=== PATIENT | male | born 1940 | race Caucasian/White ===

== ENCOUNTER 2022-06-01 14:00 | Outpatient (CLI) | payer MEDICARE, BC, SELFPAY ==
[2022-06-01 17:46] LABS: Chloride* 101 mmol/L (96-114); Potassium* 3.7 mmol/L (3.6-5.1); Sodium* 136 mmol/L (135-149)
[2022-06-01 17:49] LABS: Blood Urea Nitrogen* 31 mg/dL (7-30); Carbon Dioxide* 27 mmol/L (20-32); Creatinine* 1.3 mg/dL (0.5-1.5); Estimated Glomerular Filt Rate 55 ml/min
[2022-06-01 17:50] LABS: Calcium* 9.6 mg/dL (8.4-10.6); Glucose* 96 mg/dL (60-115)
--- NOTE | 2022-06-17 14:07 | PC.SOCIAL ---
Spoke with pt.'s son Robb at [phone] for pt. The physician made a referral to psychiatric social worker supervisor for resources on home health billing specialist care for pt.'s spouse who has dementia while pt. is recovering from surgery. Currently Robb is staying with them but needs to fly back home on Wednesday. Emailed resources on home health billing specialist care, adult day care, home health billing specialist care, and meal delivery programs to pt.'s son Robb.
== END 2022-06-01 14:01 | disposition home or self-care (01) ==
PROVIDERS: PCP Family Medicine; Visit Provider Family Medicine
DX: Z01.818 Encounter for other preprocedural examination (principal)
CPT/HCPCS: 80048

== ENCOUNTER 2022-12-08 08:22 | Outpatient (CLI) | payer MEDICARE, BC, SELFPAY | END 2022-12-08 08:23 | disposition home or self-care (01) | LOC: INJ CL 08:24 | PROVIDERS: PCP Family Medicine; Visit Provider Family Medicine | DX: M51.36 Other intervertebral disc degeneration, lumbar region (principal); M54.16 Radiculopathy, lumbar region | CPT/HCPCS: 64483; J1100; Q9966 ==

== ENCOUNTER 2023-02-03 08:20 | Outpatient (CLI) | payer MEDICARE, BC, SELFPAY | END 2023-02-03 08:21 | disposition home or self-care (01) | LOC: NFLDREF 02-04 11:03 | PROVIDERS: PCP Family Medicine; Referring Provider Family Medicine; Visit Provider Family Medicine | DX: E78.5 Hyperlipidemia, unspecified (principal); N40.0 Benign prostatic hyperplasia without lower urinary tract symptoms; I10 Essential (primary) hypertension; Z12.5 Encounter for screening for malignant neoplasm of prostate | CPT/HCPCS: 80053; 80061; 84153 ==

== ENCOUNTER 2023-02-15 14:01 | Outpatient (CLI) | payer MEDICARE, BC, SELFPAY | END 2023-02-15 14:02 | disposition home or self-care (01) | LOC: RAD 14:01 | PROVIDERS: PCP Family Medicine; Visit Provider Family Medicine | DX: I34.0 Nonrheumatic mitral (valve) insufficiency (principal); I35.8 Other nonrheumatic aortic valve disorders; I07.1 Rheumatic tricuspid insufficiency | CPT/HCPCS: 93306 ==

== ENCOUNTER 2023-06-24 09:45 | Outpatient (RCR) | payer MEDICARE, BC, SELFPAY | END 2023-06-24 11:08 | disposition home or self-care (01) | PROVIDERS: PCP Family Medicine; Visit Provider Specialist | DX: M54.16 Radiculopathy, lumbar region (principal); R26.81 Unsteadiness on feet; M79.604 Pain in right leg; R26.9 Unspecified abnormalities of gait and mobility; R53.1 Weakness; Z51.89 Encounter for other specified aftercare | CPT/HCPCS: 97012; 97110; 97140; 97162 ==

== ENCOUNTER 2023-08-11 10:45 | Outpatient (RCR) | payer MEDICARE, BC, SELFPAY | END 2023-12-09 23:59 | disposition home or self-care (01) | PROVIDERS: PCP Family Medicine; Visit Provider Family Medicine | DX: M54.10 Radiculopathy, site unspecified (principal); G89.29 Other chronic pain; Z51.89 Encounter for other specified aftercare; R26.81 Unsteadiness on feet | CPT/HCPCS: 97110; 97112; 97140; 97163 ==

== ENCOUNTER 2023-08-17 12:47 | Outpatient (CLI) | payer MEDICARE, BC, SELFPAY ==
--- NOTE | 2023-08-17 13:00 | CRLHL7_ITS ---
For Patients: As a result of the Century Cures Act, medical imaging exams and procedure reports are released immediately into your electronic medical record. You may view this report before your referring provider. If you have questions, please contact your health care provider. Indication: ASCENDING AORTIC ANEURYSM Technique: Noncontrast CT chest Please note that all CT scans at this facility use dose modulation, iterative reconstruction, and/or weight-based dosing when appropriate to reduce radiation dose to as low as reasonably achievable. Comparison: CT abdomen 06/19/2016 Findings: No thyroid lesion. No adenopathy. Incidental pericardial recess. Vascular calcifications. Dense calcifications in the coronary arteries. No pleural or pericardial effusion. Upper abdomen unremarkable. Aortic tortuosity. Tiny hiatal hernia. Small calcified granuloma in the left lower lobe. 2.6 millimeter nodule left upper lobe, 3/44. Additional calcified nodule superior segment left lower lobe. 2 millimeter nodule within the right middle lobe, 3/51. Scarring adjacent to the right mainstem bronchus within the right lower lobe. Calcified nodule also present within the right lower lobe. 2.9 millimeter nodule right middle lobe, 63. 4.3 x 4.3 cm ascending aortic aneurysm. Impression: 4.3 cm ascending aortic aneurysm. Sequela of granulomatous disease with calcified left hilar lymph nodes and bilateral calcified pulmonary granulomas. Tiny noncalcified pulmonary nodules bilaterally measuring up to 3 millimeters. No further follow-up necessary. No adenopathy. No CHF. Please note that all CT scans at this facility use dose modulation, iterative reconstruction, and/or weight-based dosing when appropriate to reduce radiation dose to as low as reasonably achievable. Dictated by Massimo Mallory MD @ 08/20/2023 9:16:30 AM (Electronically Signed)
== END 2023-08-17 12:48 | disposition home or self-care (01) ==
LOC: CT 12:47
PROVIDERS: PCP Family Medicine; Visit Provider Family Medicine
DX: I71.20 Thoracic aortic aneurysm, without rupture, unspecified (principal); R91.1 Solitary pulmonary nodule
CPT/HCPCS: 71250

== ENCOUNTER 2024-01-31 08:10 | Outpatient (CLI) | payer MEDICARE, BC, SELFPAY | END 2024-01-31 08:11 | disposition home or self-care (01) | LOC: NFLDREF 02-04 09:59 | PROVIDERS: PCP Family Medicine; Referring Provider Family Medicine; Visit Provider Family Medicine | DX: E78.5 Hyperlipidemia, unspecified (principal); I10 Essential (primary) hypertension; R97.20 Elevated prostate specific antigen [PSA]; Z12.5 Encounter for screening for malignant neoplasm of prostate | CPT/HCPCS: 80048; 80053; 80061; G0103 ==

== ENCOUNTER 2024-02-16 13:53 | Outpatient (CLI) | payer MEDICARE, BC, SELFPAY | END 2024-02-16 13:54 | disposition home or self-care (01) | LOC: RAD 13:54 | PROVIDERS: PCP Family Medicine; Visit Provider Family Medicine | DX: I35.8 Other nonrheumatic aortic valve disorders (principal); I34.0 Nonrheumatic mitral (valve) insufficiency; I51.7 Cardiomegaly; I35.1 Nonrheumatic aortic (valve) insufficiency; I05.0 Rheumatic mitral stenosis | CPT/HCPCS: 93306 ==

== ENCOUNTER 2025-01-08 06:10 | Day surgery (SDC) | payer MEDICARE, SELFPAY ==
[2025-01-08] VITALS (10 sets, daily range): BP systolic 148–220; BP diastolic 68–101; PULSE 51–60; RESP 16; TEMP 36.4–37.1; O2SAT 97–98; BMI 22.8
[2025-01-08] MEDS: SODIUM CHLORIDE 0.9 % (FLUSH) 10 ML SYRINGE IVF (06:37)
[2025-01-08] MEDS: LACTATED RINGERS 1000 ML 1,000 ML 100 ML IV (06:37)
--- NOTE | 2025-01-08 07:10 | W.PM.H&PU ---
History & Physical Update History & Physical Update H&P Reviewed and patient assessed: No changes noted
--- NOTE | 2025-01-08 07:13 | P.GSOP_ITS ---
Operative Note Date of procedure: 01/08/25 Pre-op diagnosis: 1. Recurrent symptomatic right inguinal hernia. Post-op diagnosis: 1. Recurrent indirect right inguinal hernia. Type of Procedure: 1. Open right inguinal hernia repair with mesh. Indications: 84-year-old male with history of open right inguinal hernia repair 40 years ago presented for evaluation of right inguinal bulge. Patient stated that he noticed a bulge a few weeks ago and it was painful. He was able to massage it back and the pain resolved. He has been noticing the bulge more frequently but it was not painful. He is usually able to reduce it when he lies down. Patient is tolerating regular diet and having regular movements every 3 days or so. He had a colonoscopy 3-4 years ago and that was normal. On clinical exam with the patient standing up there was a small noticeable right inguinal hernia that was reducible. Given patient clinical history and his physical exam, an open right inguinal hernia repair was recommended. The procedure was discussed in detail. The risks associated procedure including infection, bleeding, nerve injury, hernia recurrence, and other complications were all discussed with the patient, and he agreed to proceed. Patient was recommended to start taking MiraLax to avoid constipation. Procedure Description: After discussing the risks and benefits of the procedure, the patient signed informed consent.? The operative site was marked and the patient was brought to the operating room and placed on the operating table in supine position.? Care was taken to pad the patient's pressure points.?? The patient was then sedated by anesthesia.?? The operative site was then prepped and draped in the usual sterile fashion.? A time-out was then performed. Surgical site was prepped and draped in sterile fashion. Site of the incision was marked with a marking pen and local anesthetic was injected in the right inguinal canal. An oblique incision was made just above and medial to inguinal ligament through patient's well-healed previous surgical incision. Subcutaneous tissue was dissected to external obliques. Scar tissue was noted in subcutaneous space. Small incision was made through the external oblique aponeurosis with scalpel. I then used Metzenbaum scissors to dissect under external obliques and extend my incision. Mosquito clamps were placed on the edges of external oblique exposing the inguinal floor. The right Ilioinguinal nerve was identified and was going through the plain of dissection. The nerve was divided proximally and distally and a 3 cm segment of it was excised. This was not sent to pathology. I then identified the spermatic cord and the hernia sac. I bluntly dissected subcutaneous tissues in order to place [place] drain around the cord structures. Scar tissue was noted in the inguinal floor and near their internal ring. Cremasteric fibers were peeled off and dissected off the hernia sac and cord structures. There was no evidence of direct inguinal hernia recurrence. Firmness was palpated near the internal ring suggestive of a mesh plug. I also noted at the [place] like sutures near the pubic tubercle. There was indirect hernia sac noted. The hernia sac was mobilized off the spermatic cord bluntly and with cautery. The indirect hernia sac was incised and examined from the inside. No intraabdominal organs were incarcerated in the hernia sac. A stitch using 3-0 Vicryl was placed near the base of the hernia sac through the sac and the hernia sac tied off. Hernia sac was then excised and not sent to pathology. The cut edge of the hernia sac was then oversewn with a running locking Vicryl suture. This was then pushed into preperitoneal space through the internal ring. Surgical field was examined for bleeding and hemostasis was achieved with cautery and Vicryl ties. A Bard mesh onlay was used for hernia repair. The mesh onlay was sutured in place with interrupted 0-0 Neurolon sutures to the conjoint tendon medially and shelving edge laterally, pubic tubercle inferiorly. Simple interrupted sutures were placed using 0-0 Neurolon at the base of internal inguinal ring making it only large enough to fit a tip of one finger through. Spermatic cord was placed back into scrotum. Medford drain was removed. External oblique aponeurosis was closed with a running 3-0 Vicryl. Amarjit's fascia and subcutaneous tissue was re-approximated with interrupted Vicryl stitches. Skin incision was closed with 4-0 Monocryl subcuticular stitch. Steri strips and sterile dressing were applied over incision. All counts were correct at the end of the case. Patient tolerated this procedure well and was transferred to PACU in stable condition. Findings: Scar tissue noted in subcutaneous space and around the internal ring. Indirect hernia recurrence. Anesthesia: MAC and local Surgeon: Fito See MD Estimated blood loss (mL): 5 Condition: stable Disposition: same day
[2025-01-08] MEDS: CEFAZOLIN 2 GM INJ IVP (07:29)
[2025-01-08] MEDS: BUPIVACAINE 0.25% 30 ML INJECTION (08:28)
[2025-01-08] MEDS: LIDOCAINE 1%-EPI 1:100,000 20 ML INFILTRATI (08:28)
--- NOTE | 2025-01-08 08:53 | P.ANES_ITS ---
Anesthesia Charges Start Date/Time Anesthesia Start Date: 01/08/25 Anesthesia Start Time: 07:21 Stop Date/Time Anesthesia Stop Date: 01/08/25 Anesthesia Stop Time: 07:50 Summary Extremes of Age - Over 70 or under 1: PLUG MACHINE OPERATOR Coding CPT Codes CPT Codes: ANESTH REPAIR OF HERNIA - 00740 ([id number]) P3 - PATIENT W/SEVERE SYS DISEASE, QZ - PLUG MACHINE OPERATOR SVC W/O CRAFT MANAGER BY Additional Codes: Summary - Extremes of Age - Over 70 or under 1: PLUG MACHINE OPERATOR ([id number])
--- NOTE | 2025-01-08 08:53 | W.ANESCHARGE ---
Anesthesia Charges Start Date/Time Anesthesia Start Date: 01/08/25 Anesthesia Start Time: 07:21 Stop Date/Time Anesthesia Stop Date: 01/08/25 Anesthesia Stop Time: 07:50 Summary Extremes of Age - Over 70 or under 1: HAND RIVETER Coding CPT Codes CPT Codes: ANESTH REPAIR OF HERNIA - 11673 ([id number]) P3 - PATIENT W/SEVERE SYS DISEASE, QZ - HAND RIVETER SVC W/O METAL FABRICATION SUPERVISOR BY Additional Codes: Summary - Extremes of Age - Over 70 or under 1: HAND RIVETER ([id number])
[2025-01-08] MEDS: HYDRALAZINE HCL 20 MG/ML inj 10 MG IVP (09:51)
== END 2025-01-08 10:41 | disposition home or self-care (01) ==
PROVIDERS: PCP Family Medicine; Visit Provider Surgery
PROC: (CPT 49520; principal; 2025-01-08 07:30)
DX: K40.91 Unilateral inguinal hernia, without obstruction or gangrene, recurrent (principal)
CPT/HCPCS: 49520; 00830; 99100; C1781; J0360; J0665; J0690; J2405; J2704; J3010; J3490; J7120

== ENCOUNTER 2025-03-06 08:15 | Outpatient (CLI) | payer MEDICARE, SELFPAY | END 2025-03-06 08:16 | disposition home or self-care (01) | LOC: NFLDREF 03-13 23:34 | PROVIDERS: PCP Family Medicine; Referring Provider Family Medicine; Visit Provider Family Medicine | DX: I10 Essential (primary) hypertension (principal); E78.5 Hyperlipidemia, unspecified; R97.20 Elevated prostate specific antigen [PSA]; Z12.5 Encounter for screening for malignant neoplasm of prostate | CPT/HCPCS: 80053; 80061; G0103 ==

== ENCOUNTER 2025-04-24 08:12 | Outpatient (CLI) | payer MEDICARE, SELFPAY ==
[2025-04-24 11:53] LABS: Vitamin B12* 348 pg/mL (243-894)
--- OUTSIDE RECORDS SUMMARY | 2025-04-25 00:37 | XMS_ITS | Clinical Summary ---
Author Organization [facility] Address [address] [place] [address] Care Team Providers Care Photoengraving Etcher Apprentice Name Role Phone Elsewhere, Pcp Primary Care Provider Unavailabl e Source Comments Patient records contain information from all sites at [facility]. For routine questions regarding patient records, call [phone] during business hours, M-F 8:00 AM - 5:00 PM Central Time. Record requests for emergency care only can be directed to [phone] at any time.[facility] Allergies Active Allergy Reactions Criticality Noted Date Comments Benjamin Inhibitors Other (see comments) 11/26/2004 Elevated potassium Cat Dander Other (see comments) 10/30/2008 Sinus congestion and itchy eyes. Medications * This document contains information received from the source organization and may not represent a complete record from that organization. atorvastatin (Lipitor) 20 mg tablet Take 20 mg by mouth at bedtime. 7 Active cholecalciferol (Vitamin D3) 25 mcg (1,000 Unit) capsule Take 1 capsule by mouth daily as needed. 7 Active gabapentin (Neurontin) 300 mg capsule Take 2 capsules by mouth at bedtime. 3 Active losartan (Cozaar) 100 mg tablet Take 100 mg by mouth daily. 1 Active multivitamin tablet Take 1 tablet by mouth daily. 1 Active psyllium husk, sweetleaf, 3.5 gram/5.8 gram powder Take 3.5 g by mouth daily. 2 Active tamsulosin (Flomax) 0.4 mg 24 hr capsule Take 0.8 mg by mouth daily. 7 Active triamterene-hyd roCHLOROthiazid e (Maxzide-25) 37.5-25 mg per tablet Take 1 tablet by mouth daily. [address] tablet Take 81 mg by mouth daily. Active carbidopa-levod opa (Sinemet) 25-100 mg per tablet Take 3 tablets by mouth 3 (three) times a day. 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 09/25/2024 Abnormal Gait Non Orthopedic 09/25/2024 Parkinsonism Unspecified 09/25/2024 Impairment Cognitive Mild 09/25/2024 Hydrocephalus Normal Pressure 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 Dysarthria 09/25/2024 Immunizations Immunization Administration Dates Next Due HZV (ZOSTAVAX) 12/31/2009 Influenza Split 07/25/2012,08/23/2008 PPSV23 12/03/2005 Td Preservative Free (TENIVAC, DECAVAC) 12/03/19 06 Social History Tobacco Use Types Packs/Day Years Used Date Smoking Tobacco: Never Passive Smoke Exposure: Never Smokeless Tobacco: Never Tobacco Cessation:Counseling Given: Not Answered [facility] Utilities Answer Date Recorded In the past 12 months has e 3[employer] game platform, [employer], oil, or water [employer] threatened to shut off services in your home? No 09/18/2024 Hunger Vital Sign Answer Date Recorded Within the past 12 months, y ou worried that your food would run out before you got the money to buy more. Never true 09/18/20 24 Within the past 12 months, t he food you bought just didn't last and you didn't have money to get more. Never true 09/18/2024 PRAPARE - Transportation Answer Date Re corded In the past 12 months, has l ack of transportation kept you from medical appointments or from getting medications? No 08/26 In the past 12 months, has l ack of transportation kept you from meetings, work, or from getting things needed for daily living? No 09/18/2024 Housing Stability Answer Date Recorded What is your living situation today? I have a mandy place to live 09/18/2024 Sex and Gender Information Value Date Recorded Sex Assigned at Male 09/18/2024 12:48 PM EGG BUYER Legal Sex Male 9:21 PM EGG BUYER Gender Identity Male 09/18/2024 12:48 PM EGG BUYER Sexual Orientation Straight 09/18/2024 12 :48 PM EGG BUYER Last Filed Vital Signs Vital Sign Reading Time Taken Comments Blood Pressure 143/79 08/26/2012 10:10 AM CDT Pulse 47 08/26/2012 10:10 AM CDT Temperature - - Respiratory Rate - - Oxygen Saturation - - Inhaled Oxygen Concentration - - Weight 67.7 kg (149 lb 2.3 oz) 09/25/2024 8:11 A M EGG BUYER Height 171.8 cm (5' 7.64) 09/25/2024 8:11 AM CS T Body Mass Index 22.92 09/25/2024 8:11 AM EGG BUYER Plan of Treatment Health Maintenance Due Date Last Done Comments Pneumococcal vaccine (50+ ye ars) (2 of 2 - PCV) 12/03/2006 12/03/2005 Zoster Vaccines (2 of 3) 02/25/2010 12/31/2009 IPV Vaccines (2 of 3 - Adult catch-up series) 12/25/2010 11/27/2010 RSV vaccine - (32-3 6 weeks) or 60+ years (1 - 1-dose 75+ series) 2013 Fall Risk Screen (Annual) 2024 COVID-19 Vaccine (2023-2 5 season) 2025 07/13/2024, 07/28/2023, 07/13/2022, Additional history exists Creatinine Level (Kidney Fun ction Test) 09/25/2025 09/25/2024 Potassium Level 09/25/2025 09/25/2024 Sodium Level 09/25/2025 09/25/2024 DTaP,Tdap,and Td Vaccines (3 - Td or Tdap) 02/02/2033 02/02/2023, 07/11/2013, 12/03/2005 Influenza Vaccine Completed 11/23/2024, , 07/01/2022, Additional history exists Medical Devices Implanted Type Area Grades 1 Thru 5 Teacher Device Identifier Shelf Expiration Date Model / Serial / Lot Hernia Mesh Mesh or Patch Groin Procedures Procedure Name Priority Date/Time Associated Diagnosis Comments COMPREHENSIVE METABOLIC PANEL, S/P Routine 09/25/2024 10:41 AM EGG BUYER Unspecified Dementia Unspecified Severity Without Behavioral Disturbance Psychotic disturbance Mood Disturbance And Anxiety (HCC) from Last 3 Months or Most Recently Relevant to Health Maintenance Results * (ABNORMAL) Comprehensive Metabolic Panel (09/25/2024 10:41 AM EGG BUYER) Pathologist [facility] Potassium, S 4.3 3.6 - 5.2 mmol/L 09/25/2024 11:41 AM EGG BUYER DTL Sodium, S 136 135 - 145 mmol/L 09/25/2024 11:41 AM EGG BUYER DTL Chloride, S 99 98 - 107 mmol/L 09/25/2024 11:41 AM EGG BUYER DTL Bicarbonate, S 28 22 - 29 mmol/L 09/25/2024 11:41 AM EGG BUYER DTL Anion Gap 9 7 - 15 09/25/2024 11:41 AM EGG BUYER DTL BUN (Blood Urea Nitrogen), S 23 8 - 24 mg/dL 09/25/2024 11:41 AM EGG BUYER DTL Creatinine 1.29 0.74 - 1.35 mg/dL 09/25/2024 11:41 AM EGG BUYER DTL Estimated GFR (eGFR) 54(L) >=60 mL/min/BS A 09/25/2024 11:41 AM EGG BUYER DTL Comment: Estimated GFR calculated using the 2020 CKD_EPI creatinine equation. Calcium, Total, S 10.0 8.8 - 10.2 mg/dL 09/25/2024 11:41 AM EGG BUYER DTL Glucose, S 90 70 - 140 mg/dL 09/25/2024 11:41 AM EGG BUYER DTL Protein, Total, S 6.2(L) 6.3 - 7.9 g/dL 09/25/2024 11:41 AM EGG BUYER DTL Albumin, S 4.3 3.5 - 5.0 g/dL 09/25/2024 11:41 AM EGG BUYER DTL Aspartate Aminotransferase (AST), S 24 8 - 48 U/L 09/25/2024 11:41 AM EGG BUYER DTL Alkaline Phosphatase, S 66 40 - 129 U/L 09/25/2024 11:41 AM EGG BUYER DTL Alanine Aminotransferase (ALT), S 19 7 - 55 U/L 09/25/2024 11:41 AM EGG BUYER DTL Bilirubin, Total, S 0.9 0.0 - 1.2 mg/dL 09/25/2024 11:41 AM EGG BUYER DTL Blood (Blood, Venous) 09/25/2024 10:41 AM EGG BUYER 09/25/2024 11:17 AM EGG BUYER Jose Conrad M.D., Ph.D. LAB BLOOD ADD-ON Fin al Result [facility] [address] [place] [address], [place] DTL [facility] [address] [place] [address] from Last 3 Months or Most Recently Relevant to Health Maintenance Insurance [address] [phone] [facility] MEDICARE Care Teams Photoengraving Etcher Apprentice Relationship Specialty Start Date End Date Elsewhere, Pcp PCP - General Internal Medicine 09/18/24
[2025-04-26 23:10] LABS: Vitamin B1, Whole Blood 183 nmol/L (70-180)
== END 2025-04-24 08:13 | disposition home or self-care (01) ==
LOC: NPINS 08:15
PROVIDERS: PCP Family Medicine; Visit Provider Psychiatry & Neurology Neurology
DX: M48.061 Spinal stenosis, lumbar region without neurogenic claudication (principal); G20.A1 Parkinson's disease without dyskinesia, without mention of fluctuations; G62.9 Polyneuropathy, unspecified; G31.84 Mild cognitive impairment of uncertain or unknown etiology; G91.2 (Idiopathic) normal pressure hydrocephalus
CPT/HCPCS: 82607; 84207; 84425

== ENCOUNTER 2025-08-02 13:45 | Outpatient (RCR) | payer MEDICARE, SELFPAY | END 2025-08-03 07:34 | disposition home or self-care (01) | PROVIDERS: PCP Family Medicine; Visit Provider Psychiatry & Neurology Neurology | DX: G20.A1 Parkinson's disease without dyskinesia, without mention of fluctuations (principal); M48.061 Spinal stenosis, lumbar region without neurogenic claudication; G91.2 (Idiopathic) normal pressure hydrocephalus; G62.9 Polyneuropathy, unspecified; G31.84 Mild cognitive impairment of uncertain or unknown etiology; Z51.89 Encounter for other specified aftercare | CPT/HCPCS: 97110; 97112; 97116; 97162; 97530 ==